=== PATIENT | male | born 1945 | race Caucasian/White ===

== ENCOUNTER 2018-06-19 17:25 | Observation (INO) | payer OTHER ==
--- NOTE | 2018-06-19 17:47 | PDOC ---
Attending Attestation - Resident Resident Name: Bayron Bowling - ED Attending Attestation I have performed the following: I have examined & evaluated the patient, The case was reviewed & discussed with the resident, I agree w/resident's findings & plan, Exceptions are as noted - Medical Decision Making 06/19/18 17:47 I, Dr. Kiara Calles, DO, attest that this document has been prepared under my direction and personally reviewed by me in its entirety. I further attest, that it accurately reflects all work, treatment, procedures and medical decision -making performed by me. 06/19/18 19:06 a/p: 72yo male with a witnessed syncopal episode while dancing at a fam event -hx of cad -hx of recent travel from [place] -no cp/sob -has had intermittent L lower extremity pain -will send labs, surveillance system monitor, ekg, cxr -duplex us lower leg -will need obs for syncopal episode <Kiara Calles - Last Filed: 06/19/18 19:06> - HPI HPI: 06/19/18 19:28 The patient is a 72 year old male with a significant past medical history of CAD s/p CABG, DM, and HDL who presents to the ER with a syncopal episode approximately 30 minutes prior to arrival. Patient states he was dancing at a constitution party and subsequently felt dizzy. Patient denies any headaches, chest pain, palpitations, or shortness of breath prior to his syncopal episode. Patient ate and drank normally today. Patient endorses drinking two sips of Black Label. Patient was grabbed by his brother and lowered to the ground. Patient denies any head trauma. Patient lost consciousness for approximately 3 minutes and returned to baseline afterwards. Patient denies any tongue biting, and loss of bladder or bowel control. Patient also endorses 3 episodes of nonbloody, nonbilious vomit. Patient ate BBQ sausages last night and is unsure if that upset his stomach. Patient is also reporting left calf pain yesterday and occasional pain since coming back from [place] on June 02. Patient was placed on a z-pack after returning from [place] for a cough, which he has completed. Patient has no complaints now. The patient now denies numbness/weakness/tingling of his extremities, chest pain , shortness of breath, headache, and dizziness. Denies fever, chills, nausea, vomit, diarrhea, and constipation. Denies dysuria, frequency, urgency, and hematuria. Allergies: NKA Past surgical history: CABG Social history: Recently quit smoking. No reported drug or alcohol use. PCP: Dr. Curry - Physicial Exam PE: 06/19/18 19:05 ADULT PHYSICAL EXAM Constitutional: Awake, alert, oriented. No acute distress. Head: Normocephalic. Atraumatic Eyes: PERRL. EOMI. Conjunctivae are not pale. ENT: Mucous membranes are moist and intact. Posterior pharynx without exudates or erythema. Uvula midline. Neck: Supple. Full ROM. No lymphadenopathy. Cardiovascular: Regular rate. Regular rhythm. S1, S2 regular. Distal pulses are 2+ and symmetric. Pulmonary/Chest: No evidence of respiratory distress. Clear to auscultation bilaterally No wheezing, rales or rhonchi. Abdominal: Soft and non-distended. There is no tenderness. No rebound, guarding or rigidity. No organomegaly. No palpable masses. Good bowel sounds. Back: No CVA tenderness. Musculoskeletal: No edema. No cyanosis. No clubbing. Full range of motion in all extremities. Nocalf tenderness. Radial/pedal pulses are intact and 2+ bilaterally Skin: Skin is warm and dry. No petechiae. No purpura. <Jimena Jim - Last Filed: 06/19/18 19:28> Heart Score/ECG Review - ECG Intrepretation Comment:: 06/19/18 17:48 sinus at 79, incomplete rbbb, t wave inversions I/avl, abnl ekg - changes from prior in 2014 <Kiara Calles - Last Filed: 06/19/18 19:06>
[2018-06-19 17:59] VITALS: BMI 29.8
[2018-06-19] MEDS ORDERED: SODIUM CHLORIDE 0.9% 500 ML INFUS.BAG IV ONE (18:14)
--- NOTE | 2018-06-19 18:44 | PDOC ---
History of Present Illness - General Chief Complaint: Syncope/Near Syncope Stated Complaint: SYNCOPE Time Seen by Provider: 06/19/18 17:35 History Source: Patient, Spouse ( present for interview.) Exam Limitations: No Limitations - History of Present Illness Initial Comments: 72 y/o male presenting to [facility] ER via ambulance complaining of a syncopal episode approx. 30 min prior to arrival. Pt states he was dancing at a [employer] when he suddenly felt the dizzy and weak. Only drank a few sips of Black Label. He was helped to the floor by his brother. believes the pt was unresponsive for approx. 3 minutes, denies witnessing shaking or seizure like activity. He returned to to baseline immediately after regaining consciousness. He denies tongue biting or urinary/fecal incontinence. He vomited twice, described as food particulates only no blood or bile. Denies history of similar. Denies chest pain, SOB, fevers, chills, diaphoresis, GI, or symptoms. Returned from a two week trip to [place] on . Endorses a cough on his return. Was prescribed a Z-Jerrod by his PCP. Completed the antibiotic therapy 7 days ago. PCP: Mauricio Curry Hx: - Recently stopped smoking Medical Hx: - CAD s/p CABG - DM - HDL Surgical Hx: - CABG 06/2015 at [place] Past History - Past Medical History Allergies/Adverse Reactions: Allergies Allergy/AdvReac Type Severity Reaction Status Date / Time No Known Allergies Allergy Verified 06/19/18 17:47 Home Medications: Ambulatory Orders Aspirin [Ecotrin] 81 mg PO DAILY 12/27/14 Insulin Aspart [Novolog] 0 unit SQ AC 12/27/14 Insulin Glargine,Hum.rec.anlog [Lantus (nf)] 0 units SQ HS 12/27/14 Olmesartan/Hydrochlorothiazide [Benicar Hct 40-12.5 mg Tablet] 1 each PO DAILY 12/27/14 Simvastatin [Zocor -] 40 mg PO HS 12/27/14 Sitagliptin Phos/Metformin HCl [Janumet 50-1,000 mg Tablet] 1 each PO DAILY COPD: No CHF: No Diabetes: Yes HTN: Yes Hypercholesterolemia: Yes - Suicide/Smoking/Psychosocial Hx Smoking History: Former smoker Have you smoked in the past 12 months: Yes Number of Cigarettes Smoked Daily: 10 Information on smoking cessation initiated: No Hx Alcohol Use: Yes (social) Drug/Substance Use Hx: No Substance Use Type: Alcohol Review of Systems - Review of Systems Able to Perform ROS?: Yes Comments:: In addition to that documented in the HPI above, the additional ROS was obtained : Constitutional: Denies fevers or chills Eyes: Denies vision changes ENMT: Denies sore throat CV: Denies chest pain Resp: Denies SOB GI: Endorses vomiting but denies diarrhea : Denies painful urination MSK: Denies recent trauma Skin: Denies new rashes Neuro: Denies new numbness or tingling or weakness Endocrine: Denies polyuria Heme: Denies bleeding or bruising *Physical Exam - Vital Signs Last Vital Signs Temp Pulse Resp BP Pulse Ox 98.0 F 83 18 121/72 100 06/19/18 17:41 06/19/18 17:41 06/19/18 17:41 06/19/18 17:41 06/19/18 18:44 - Physical Exam Comments: Constitutional: Well-developed, well-nourished male in no acute distress or obvious discomfort. Found semi-fowlers in hospital bed. Alert and oriented x4. Answered all questions appropriately and completely. Speech was non-labored, non -pressured. Head: Normocephalic. No obvious external signs of trauma. Eyes: PERRL. EOMI. Sclerae white. Conjunctiva moist and not injected. EARS: Hearing grossly intact. NOSE: No nasal discharge. THROAT: Oral cavity and pharynx normal. No inflammation, swelling, exudate, or lesions. Teeth and gingiva in good general condition. Neck: Supple, trachea is midline. Cardiovascular: Regular rate and regular rhythm. No murmur, rubs, clicks, or gallops. Peripheral pulses: Radial pulses full. Respiratory: Breathing unlabored. Equal chest rise and fall. Clear to auscultation bilaterally. No stridor, no wheezing, no rhonchi. Gastrointestinal: abdomen is soft, non-tender, non-distended. Neuro: Alert and oriented. Moving all four extremities spontaneously. No focal deficits, Cranial nerves intact, intact sensation to all four extremities. Upper and lower extremities: proximal and distal strength 5/5. Application Specialist strength 5/ 5 - equal and symmetric. Plantar flexion and dorsiflexion 5/5. Skin: Warm, dry, and intact. No bruising, rashes, or other lesions. No palpable nodules. Psych: Affect: appropriate. Mood: normal. ED Treatment Course - LABORATORY CBC & Chemistry Diagram: 06/19/18 18:22 10 18:35 - ADDITIONAL ORDERS Additional order review: Laboratory Results 06/19/18 10 18:35 18:22 Sodium 138 Potassium 4.3 Chloride 103 Carbon Dioxide 28 Anion Gap 6 L BUN 25 H Creatinine 1.2 Creat Clearance w eGFR 59.68 Random Glucose 153 H Calcium 9.2 Phosphorus 3.4 Magnesium 1.8 Total Bilirubin 0.4 AST 14 L ALT 18 Alkaline Phosphatase 83 Troponin I 0.04 Total Protein 6.8 Albumin 3.1 L TSH 1.65 06/19/18 18:22 RBC 4.42 MCV 89.2 MCHC 33.5 RDW 13.7 MPV 11.1 Neutrophils % 82.9 H Lymphocytes % 7.6 L Monocytes % 7.7 Eosinophils % 1.4 Basophils % 0.4 - RADIOLOGY Radiology Studies Ordered: Category Date Time Status CHEST PA & LAT [RAD] Stat Radiology 06/19/18 18:14 Ordered DUPLEX VASCUL US-1 LEG [US] Stat Ultrasound 06/19/18 19:08 Ordered - Medications Given in the ED: ED Medications Discontinued Medications Generic Name Dose Route Start Last Admin Trade Name Freq PRN Reason Stop Dose Admin Sodium Chloride 1,000 ml 06/19/18 18:14 06/19/18 18:39 Normal Saline - IV 06/19/18 18:15 1,000 ml ONCE ONE Administration Medical Decision Making - Medical Decision Making *Reviewed vital signs, nursing notes, and prior visit documentation (if available). 72 y/o male presenting s/p witnessed syncope episode. No h/o similar. Without active chief complaint at time of interview. Afebrile. Vitals unremarkable. Benign physical exam, neurologically intact. D/D: ACS, arrhythmia, electrolyte derangement, thyroid derangement, pneumonia, dehydration, vasovagal, UTI (very low suspicion), seizure, PE. Will obtain: CBC, CMP, Mag, Phos, TSH, Troponin, EKG, CXR, UA, urine culture. Ordered NS IVFB. Admission likely. Wells' Criteria for Pulmonary Embolism RESULT SUMMARY: 0.0 points Low risk group: 1.3% chance of PE in an ED population. Another study assigned scores ? 4 as PE Unlikely and had a 3% incidence of PE. INPUTS: Clinical signs and symptoms of DVT > 0 = No PE is #1 diagnosis OR equally likely > 0 = No Heart rate > 100 > 0 = No Immobilization at least 3 days OR surgery in the previous 4 weeks > 0 = No Previous, objectively diagnosed PE or DVT > 0 = No Hemoptysis > 0 = No Malignancy w/ treatment within 6 months or palliative > 0 = No 06/19/18 19:26 Pt signed out to resident Dr. Vargas after she was verbally appraised of the pt's HPI and current condition. Will follow up on pending labs , CXR, and vascular ultrasound. Plan is likely to admit. *DC/Admit/Observation/Transfer Diagnosis at time of Disposition: Syncope - Discharge Dispostion Condition at time of disposition: Stable - Referrals Referrals: Mauricio Curry MD [Primary Care Provider] - - Patient Instructions - Post Discharge Activity
[2018-06-19 18:45] LABS: BASO % 0.4 % (0-2.0); EOS % 1.4 % (0-4.5); HEMATOCRIT 39.5 % (35.4-49); HEMOGLOBIN 13.2 GM/dL (11.7-16.9); LYMPH % 7.6 % (8-40); MCH 29.9 pg (25.7-33.7); MCHC 33.5 g/dl (32.0-35.9); MEAN CELL VOLUME 89.2 fl (80-96); MEAN PLT VOLUME 11.1 fl (7.5-11.1); MONO % 7.7 % (3.8-10.2); NEUT % 82.9 % (42.8-82.8); PLATELET COUNT 217 K/MM3 (134-434); RBC 4.42 M/mm3 (4.00-5.60); RDW 13.7 % (11.9-15.9); WHITE BLOOD COUNT 13.2 K/mm3 (4.0-10.0)
[2018-06-19 19:22] LABS: ALBUMIN 3.1 g/dl (3.4-5.0); ALK PHOS 83 U/L (45-117); ANION GAP 6 MMOL/L (8-16); BILIRUBIN,TOTAL 0.4 mg/dL (0.2-1); BLOOD UREA NITROGEN 25 mg/dL (7-18); CALCIUM 9.2 mg/dL (8.5-10.1); CHLORIDE 103 mmol/L (98-107); CO2 28 mmol/L (21-32); CREATININE 1.2 mg/dL (0.55-1.3); GLUCOSE,RANDOM 153 mg/dL (74-106); MAGNESIUM 1.8 mg/dL (1.8-2.4); PHOSPHOROUS 3.4 mg/dL (2.5-4.9); POTASSIUM 4.3 mmol/L (3.5-5.1); SGOT/AST 14 U/L (15-37); SGPT/ALT 18 U/L (13-61); SODIUM 138 mmol/L (136-145); TOT PROT 6.8 g/dl (6.4-8.2)
--- NOTE | 2018-06-19 19:27 | PDOC ---
*Physical Exam - Vital Signs Last Vital Signs Temp Pulse Resp BP Pulse Ox 98.0 F 83 18 121/72 100 06/19/18 17:41 06/19/18 17:41 06/19/18 17:41 06/19/18 17:41 06/19/18 18:44 06/19/18 19:10 Patient's care was endorsed to me by Dr. Bowling at the end of his shift. This is a 72 YOM with h/o CABG 3 years ago, who was BIBEMS s/p syncopal episode while on the dance floor, unconscious ~3 minutes without seizure-like activity, then had episode of NBNB vomiting. Came back from [place] one month ago and finished a Z-pack for a cough he had at that time. He has LLE calf pain 3 nights ago (resolved) and patient Pending labs, Duplex, CXR, admit. Heart Score/ECG Review #1 EKG from 17:46 on 06/19/18 reviewed at 19:20 today. NSR, rate 79, q wave in III, incomplete RBBB, TWI in I, aVL, V56. TWI are all old compared with 2015 studies. ED Treatment Course - LABORATORY CBC & Chemistry Diagram: 06/19/18 18:22 06/19/18 18:35 - ADDITIONAL ORDERS Additional order review: Laboratory Results 06/19/18 06/19/18 18:35 18:22 Sodium 138 Potassium 4.3 Chloride 103 Carbon Dioxide 28 Anion Gap 6 L BUN 25 H Creatinine 1.2 Creat Clearance w eGFR 59.68 Random Glucose 153 H Calcium 9.2 Phosphorus 3.4 Magnesium 1.8 Total Bilirubin 0.4 AST 14 L ALT 18 Alkaline Phosphatase 83 Troponin I 0.04 Total Protein 6.8 Albumin 3.1 L TSH 1.65 06/19/18 18:22 RBC 4.42 MCV 89.2 MCHC 33.5 RDW 13.7 MPV 11.1 Neutrophils % 82.9 H Lymphocytes % 7.6 L Monocytes % 7.7 Eosinophils % 1.4 Basophils % 0.4 - Medications Given in the ED: ED Medications Discontinued Medications Generic Name Dose Route Start Last Admin Trade Name Freq PRN Reason Stop Dose Admin Sodium Chloride 1,000 ml 06/19/18 18:14 06/19/18 18:39 Normal Saline - IV 06/19/18 18:15 1,000 ml ONCE ONE Administration Medical Decision Making - Medical Decision Making 06/19/18 20:17 I spoke with the patient and his family. The patient is A/Ox4, very pleasant, reluctant to stay, wants all the ED w/u information before deciding. Still pending CXR and repeat labs. Laboratory Tests 06/19/18 06/19/18 06/19/18 18:22 18:22 18:35 WBC 13.2 H RBC 4.42 Hgb 13.2 Hct 39.5 MCV 89.2 MCH 29.9 MCHC 33.5 RDW 13.7 Plt Count 217 MPV 11.1 Absolute Neuts (auto) 10.9 H Neutrophils % 82.9 H Lymphocytes % 7.6 L Monocytes % 7.7 Eosinophils % 1.4 Basophils % 0.4 Nucleated RBC % 0 D-Dimer Sodium 138 Potassium 4.3 Chloride 103 Carbon Dioxide 28 Anion Gap 6 L BUN 25 H Creatinine 1.2 Creat Clearance w eGFR 59.68 Random Glucose 153 H Calcium 9.2 Phosphorus 3.4 Magnesium 1.8 Total Bilirubin 0.4 AST 14 L ALT 18 Alkaline Phosphatase 83 Troponin I 0.04 Total Protein 6.8 Albumin 3.1 L TSH 1.65 06/19/18 19:16 WBC RBC Hgb Hct MCV MCH MCHC RDW Plt Count MPV Absolute Neuts (auto) Neutrophils % Lymphocytes % Monocytes % Eosinophils % Basophils % Nucleated RBC % D-Dimer 393 Sodium Potassium Chloride Carbon Dioxide Anion Gap BUN Creatinine Creat Clearance w eGFR Random Glucose Calcium Phosphorus Magnesium Total Bilirubin AST ALT Alkaline Phosphatase Troponin I Total Protein Albumin TSH 06/19/18 21:25 Placed order for repeat troponin. CXR changed to portable and the patient is next in line. Patient and family increasingly wanting to leave. I stress to him the importance of further workup for this apparent syncopal episode. I explain that syncope in the setting of cardiac history like his is very concerning and needs observation and further w/u. He states he is sure this is a stomach issue and does not believe it is anything dangerous. I stress to him that without further workup, we cannot say for sure that it is benign. I explain that fainting in a man his age with his cardiac history is very concerning and can be dangerous. He wants the results of the rest of the workup and then to go home. Laboratory Tests 06/19/18 06/19/18 06/19/18 18:22 18:22 18:35 WBC 13.2 H RBC 4.42 Hgb 13.2 Hct 39.5 MCV 89.2 MCH 29.9 MCHC 33.5 RDW 13.7 Plt Count 217 MPV 11.1 Absolute Neuts (auto) 10.9 H Neutrophils % 82.9 H Lymphocytes % 7.6 L Monocytes % 7.7 Eosinophils % 1.4 Basophils % 0.4 Nucleated RBC % 0 D-Dimer Sodium 138 Potassium 4.3 Chloride 103 Carbon Dioxide 28 Anion Gap 6 L BUN 25 H Creatinine 1.2 Creat Clearance w eGFR 59.68 Random Glucose 153 H Calcium 9.2 Phosphorus 3.4 Magnesium 1.8 Total Bilirubin 0.4 AST 14 L ALT 18 Alkaline Phosphatase 83 Troponin I 0.04 Total Protein 6.8 Albumin 3.1 L TSH 1.65 Urine Color Urine Appearance Urine pH Ur Specific Leroy Urine Protein Urine Glucose (UA) Urine Ketones Urine Blood Urine Nitrite Urine Bilirubin Urine Urobilinogen Ur Leukocyte Esterase Urine WBC (Auto) Urine RBC (Auto) Urine Mucus 06/19/18 06/19/18 06/19/18 18:39 19:16 21:41 WBC RBC Hgb Hct MCV MCH MCHC RDW Plt Count MPV Absolute Neuts (auto) Neutrophils % Lymphocytes % Monocytes % Eosinophils % Basophils % Nucleated RBC % D-Dimer 393 Sodium Potassium Chloride Carbon Dioxide Anion Gap BUN Creatinine Creat Clearance w eGFR Random Glucose Calcium Phosphorus Magnesium Total Bilirubin AST ALT Alkaline Phosphatase Troponin I 0.07 H Total Protein Albumin TSH Urine Color Yellow Urine Appearance Clear Urine pH 5.0 Ur Specific Leroy 1.017 Urine Protein 2+ H Urine Glucose (UA) Negative Urine Ketones Negative Urine Blood Negative Urine Nitrite Negative Urine Bilirubin Negative Urine Urobilinogen Negative Ur Leukocyte Esterase Negative Urine WBC (Auto) 1 Urine RBC (Auto) 1 Urine Mucus Rare Vital Signs Temperature 98.4 F 06/19/18 22:51 Pulse Rate 64 06/19/18 22:51 Respiratory Rate 18 06/19/18 22:51 Blood Pressure 118/52 L 06/19/18 22:51 O2 Sat by Pulse Oximetry (%) 94 L 06/19/18 22:51 06/20/18 01:14 I had another conversation with the patient and his family. He is able to understand how serious this syncopal episode may be and that it may be dangerous to go home. He is amenable to staying. The Pt is unsafe for discharge at this time. They require further hospital observation, workup, and treatment. Microblog sent to [facility] for admission. Blank Decision to Admit order is placed per ED protocol. 06/20/18 01:42 I spoke with Nava Palmer; patient admitted to Tele Obs. Decision to Admit order corrected with Dr. Moncada's name. *DC/Admit/Observation/Transfer Diagnosis at time of Disposition: Troponin level elevated Syncope Qualifiers: Syncope type: unspecified Qualified Code(s): R55 - Syncope and collapse Vomiting Qualifiers: Vomiting type: unspecified Vomiting Intractability: non-intractable Nausea presence: unspecified Qualified Code(s): R11.10 - Vomiting, unspecified - Discharge Dispostion Condition at time of disposition: Guarded Decision to Admit order: Yes - Referrals Referrals: Mauricio Curry MD [Primary Care Provider] - - Patient Instructions - Post Discharge Activity
[2018-06-19 21:56] LABS: URINE APPEARANCE CLEAR; URINE BILIRUBIN NEGATIVE (<2.0 mg/dL); URINE COLOR YELLOW; URINE GLUCOSE (UA) NEGATIVE (NEGATIVE); URINE KETONE NEGATIVE (NEGATIVE); URINE LEUK ESTERASE NEGATIVE (NEGATIVE); URINE NITRITE NEGATIVE (NEGATIVE); URINE PROTEIN 2+ (NEGATIVE); URINE UROBILINOGEN NEGATIVE mg/dL (0.2-1.0)
[2018-06-19 22:26] LABS: URINE MUCUS RARE
[2018-06-20 02:00] VITALS: PULSE 72
[2018-06-20] MEDS ORDERED: INSULIN (LEVEMIR) 100 UNITS/ML UNITS SQ ONE ×2 (02:38→02:47)
--- NOTE | 2018-06-20 02:39 | HP ---
CHIEF COMPLAINT: syncope PCP: García Curry, Cardiology: [facility]ta[facility] HISTORY OF PRESENT ILLNESS: This is a 72 year old male with a significant past medical history of CAD s/p CABG, HTN, DM who presented to the ED after a syncopal episode. Pt states that he was dancing at a [employer] and he suddenly became dizzy and had to hold on to something. His brother lowered him to the ground and he had a LOC of 2-3 minutes according to his (as per ED note). Pt reports that when he awoke he was nauseas and was vomiting when EMS arrived. He now reports feeling well. He denies chest pain or shortness of breath. He reports not sleeping well since returning home from [place] about 2 weeks ago. He also did not eat well today. He had 2 drinks, one at home prior to going to the [employer] and one at the [employer]. He states that he does not normally drink. ER course was notable for: (1) second trop 0.07 (2) ECG unchanged Recent Travel: pt denies PAST MEDICAL HISTORY: CAD, HTN, HLD, DM PAST SURGICAL HISTORY: 2v CABG Social History: Smoking: quit smoking 2 weeks ago. Prior 1/-1 PPD x 55 years Alcohol: occ Drugs: pt denies Family History: unk Allergies No Known Allergies Allergy (Verified 06/19/18 17:47) HOME MEDICATIONS: 3 Medication Instructions Recorded Aspirin [Ecotrin] 81 mg PO DAILY 12/27/14 Insulin Aspart [Novolog] 0 unit SQ AC 12/27/14 Insulin Glargine,Hum.rec.anlog 0 units SQ HS 12/27/14 [Lantus (nf)] Olmesartan/Hydrochlorothiazide 1 each PO DAILY 12/27/14 [Benicar Hct 40-12.5 mg Tablet] Simvastatin [Zocor -] 40 mg PO HS 12/27/14 Sitagliptin Phos/Metformin HCl 1 each PO DAILY 12/27/14 [Janumet 50-1,000 mg Tablet] REVIEW OF SYSTEMS CONSTITUTIONAL: Absent: fever, chills, diaphoresis, generalized weakness, malaise, loss of appetite, weight change HEENT: Absent: rhinorrhea, nasal congestion, throat pain, throat swelling, difficulty swallowing, mouth swelling, ear pain, eye pain, visual changes CARDIOVASCULAR: Present: syncope Absent: chest pain, palpitations, irregular heart rate, lightheadedness, peripheral edema RESPIRATORY: Absent: cough, shortness of breath, dyspnea with exertion, orthopnea, wheezing, stridor, hemoptysis GASTROINTESTINAL: Present: nausea, vomiting Absent: abdominal pain, abdominal distension, diarrhea, constipation, melena, hematochezia GENITOURINARY: Absent: dysuria, frequency, urgency, hesitancy, hematuria, flank pain, genital pain MUSCULOSKELETAL: Absent: myalgia, arthralgia, joint swelling, back pain, neck pain SKIN: Absent: rash, itching, pallor HEMATOLOGIC/IMMUNOLOGIC: Absent: easy bleeding, easy bruising, lymphadenopathy, frequent infections ENDOCRINE: Absent: unexplained weight gain, unexplained weight loss, heat intolerance, cold intolerance NEUROLOGIC: Absent: headache, focal weakness or paresthesias, dizziness, unsteady gait, seizure, mental status changes, bladder or bowel incontinence PSYCHIATRIC: Absent: anxiety, depression, suicidal or homicidal ideation, hallucinations. PHYSICAL EXAMINATION Vital Signs - 24 hr 3 06/19/18 06/19/18 06/19/18 17:41 18:44 22:51 Temperature 98.0 F 98.4 F Pulse Rate 83 Pulse Rate [ 64 Apical] Respiratory 18 18 Rate Blood Pressure 121/72 Blood Pressure 118/52 L [Right Arm] O2 Sat by Pulse 100 100 94 L Oximetry (%) 3 06/19/18 23:10 Temperature 98.2 F Pulse Rate Pulse Rate [ 72 Apical] Respiratory 18 Rate Blood Pressure Blood Pressure 121/72 [Right Arm] O2 Sat by Pulse 98 Oximetry (%) GENERAL: Awake, alert, and fully oriented, in no acute distress. HEAD: Normal with no signs of trauma. EYES: Pupils equal, round and reactive to light, extraocular movements intact, sclera anicteric, conjunctiva clear. No lid lag. EARS, NOSE, THROAT: Ears normal, nares patent, oropharynx clear without exudates. Moist mucous membranes. NECK: Normal range of motion, supple without lymphadenopathy, JVD, or masses. LUNGS: Breath sounds equal, clear to auscultation bilaterally. No wheezes, and no crackles. No accessory muscle use. HEART: Regular rate and rhythm, normal S1 and S2 without murmur, rub or gallop. ABDOMEN: Soft, nontender, not distended, normoactive bowel sounds, no guarding, no rebound, no masses. No hepatomegaly or splenomegaly. MUSCULOSKELETAL: Normal range of motion at all joints. No bony deformities or tenderness. No CVA tenderness. UPPER EXTREMITIES: 2+ pulses, warm, well-perfused. No cyanosis. No clubbing. No peripheral edema. LOWER EXTREMITIES: 2+ pulses, warm, well-perfused. No calf tenderness. No peripheral edema. NEUROLOGICAL: Cranial nerves II-XII intact. Normal speech. PSYCHIATRIC: Cooperative. Good eye contact. Appropriate mood and affect. SKIN: Warm, dry, normal turgor, no rashes or lesions noted, normal capillary refill. Laboratory Results - last 24 hr 3 06/19/18 06/19/18 06/19/18 06/19/18 06/19/18 06/20/18 18:22 18:22 18:35 19:16 21:41 00:30 WBC 13.2 H RBC 4.42 Hgb 13.2 Hct 39.5 MCV 89.2 MCH 29.9 MCHC 33.5 RDW 13.7 Plt Count 217 MPV 11.1 Absolute Neuts (auto) 10.9 H Neutrophils % 82.9 H Lymphocytes % 7.6 L Monocytes % 7.7 Eosinophils % 1.4 Basophils % 0.4 Nucleated RBC % 0 D-Dimer 393 Sodium 138 Potassium 4.3 Chloride 103 Carbon Dioxide 28 Anion Gap 6 L BUN 25 H Creatinine 1.2 Creat Clearance w eGFR 59.68 POC Glucometer [phone] Random Glucose 153 H Calcium 9.2 Phosphorus 3.4 Magnesium 1.8 Total Bilirubin 0.4 AST 14 L ALT 18 Alkaline Phosphatase 83 Troponin I 0.04 0.07 H Total Protein 6.8 Albumin 3.1 L TSH 1.65 Urine Color Urine Appearance Urine pH Ur Specific [place] Urine Protein Urine Glucose (UA) Urine Ketones Urine Blood Urine Nitrite Urine Bilirubin Urine Urobilinogen Ur Leukocyte Esterase Urine WBC (Auto) Urine RBC (Auto) Urine Mucus 3 Urine Color Yellow 06/19/18 18:39 Urine Appearance Clear 06/19/18 18:39 Urine pH 5.0 (5.0-8.0) 06/19/18 18:39 Ur Specific [place] 1.017 (1.010-1.035) 06/19/18 18:39 Urine Protein 2+ (NEGATIVE) H 06/19/18 18:39 Urine Glucose (UA) Negative (NEGATIVE) 06/19/18 18:39 Urine Ketones Negative (NEGATIVE) 06/19/18 18:39 Urine Blood Negative (NEGATIVE) 06/19/18 18:39 Urine Nitrite Negative (NEGATIVE) 06/19/18 18:39 Urine Bilirubin Negative (<2.0 mg/dL) 06/19/18 18:39 Ur Leukocyte Esterase Negative (NEGATIVE) 06/19/18 18:39 Urine WBC (Auto) 1 06/19/18 18:39 Urine RBC (Auto) 1 06/19/18 18:39 Urine Mucus Rare 06/19/18 18:39 ECG Normal sinus rhythm vent rate 79, QTC 454 possible left atrial enlargement incomplete RBBB TWI lead 1, avL, v6, flattened lead II, V5, unchanged from prior T waves now upright in leads V2-V4 (previously flattened) Radiology Reports US doppler L leg Impression: No left lower extremity DVT. THIS DOCUMENT HAS BEEN ELECTRONICALLY SIGNED Emil Mena MD 06/19/2018 21:49 EST ASSESSMENT/PLAN: 72yM with PMH CAD s/p CABG, HTN, HLD, DM presented to the ED s/p syncope while dancing at a [employer]. Syncope - trop bump from 0.04 to 0.07, trend x 1 more - monitor on tele - ECG in am - cardiology consult HTN/HLD/CAD - cont home meds: ASA, lipitor, losartan, metorpolol DM - BGM AC/HS with novolog sliding scale - pt states he takes his toujeo at 3pm and 8pm, but did not take his 8pm dose , will change to formulary levemir, now 20u and 20u @3pm today - cont home po hypoglycemics as anticipated LOS short, Stop if any contrast studies indicated DVT PPX - heparin deferred, LOS anticipated less than 48 hours FEN - tolerating po - BMP in am - low sodium/diabetic diet as tolerated Dispo: pt currently requires further observation for management of his emergent condition. Visit type - Emergency Visit Emergency Visit: Yes ED Registration Date: 06/19/18 Care time: The patient presented to the Emergency Department on the above date and was hospitalized for further evaluation of their emergent condition. - New Patient This patient is new to me today: Yes Date on this admission: 06/20/18 - Critical Care Critical Care patient: No
[2018-06-20] MEDS ORDERED: metFORMIN HCL 500 MG TABLET (FP) ONE (06:15)
[2018-06-20] MEDS ORDERED: sitaGLIPtin PHOSPHATE 50 MG TABLET ONE (06:15)
[2018-06-20] MEDS: INSULIN SLIDING SCALE (NOVOLOG) 1 VIAL SQ SCH ×2 (06:28→12:33)
[2018-06-20 06:58] LABS: BASO % 0.4 % (0-2.0); EOS % 2.1 % (0-4.5); HEMATOCRIT 40.9 % (35.4-49); HEMOGLOBIN 13.2 GM/dL (11.7-16.9); LYMPH % 18.6 % (8-40); MCH 29.3 pg (25.7-33.7); MCHC 32.2 g/dl (32.0-35.9); MEAN CELL VOLUME 90.9 fl (80-96); MEAN PLT VOLUME 11.6 fl (7.5-11.1); MONO % 9.7 % (3.8-10.2); NEUT % 69.2 % (42.8-82.8); PLATELET COUNT 213 K/MM3 (134-434); RDW 13.7 % (11.9-15.9); WHITE BLOOD COUNT 10.6 K/mm3 (4.0-10.0)
[2018-06-20] MEDS ORDERED: sitaGLIPtin PHOSPHATE 100 MG TABLET (FP) PO SCH (07:00)
[2018-06-20] MEDS ORDERED: metFORMIN HCL 500 MG TABLET (FP) PO SCH (07:00)
[2018-06-20 07:36] LABS: ANION GAP 6 MMOL/L (8-16); BLOOD UREA NITROGEN 23 mg/dL (7-18); CALCIUM 8.8 mg/dL (8.5-10.1); CHLORIDE 103 mmol/L (98-107); CO2 29 mmol/L (21-32); CREATININE 1.3 mg/dL (0.55-1.3); GLUCOSE,RANDOM 140 mg/dL (74-106); PHOSPHOROUS 3.5 mg/dL (2.5-4.9); SODIUM 138 mmol/L (136-145)
[2018-06-20 08:40] VITALS: BP 134/72; TEMP 98.1
[2018-06-20] MEDS ORDERED: ASPIRIN COATED 81 MG TABLET.EC PO SCH (10:00)
--- NOTE | 2018-06-20 10:32 | EKG ---
Test Reason : Blood Pressure : / mmHG Vent. Rate : 071 BPM Atrial Rate : 071 BPM P-R Int : 134 ms QRS Dur : 106 ms QT Int : 416 ms P-R-T Axes : 051 033 213 degrees QTc Int : 452 ms NORMAL SINUS RHYTHM POSSIBLE LEFT ATRIAL ENLARGEMENT ABNORMAL ECG WHEN COMPARED WITH ECG OF 19-JUN-2018 17:46, Confirmed by VAUGHN URBINA MD ([id number]) on 06/20/2018 10:31:45 AM Referred By: Confirmed By:VAUGHN URBINA MD
--- NOTE | 2018-06-20 10:40 | EKG ---
Test Reason : Blood Pressure : / mmHG Vent. Rate : 079 BPM Atrial Rate : 079 BPM P-R Int : 138 ms QRS Dur : 104 ms QT Int : 396 ms P-R-T Axes : 035 -19 141 degrees QTc Int : 454 ms NORMAL SINUS RHYTHM POSSIBLE LEFT ATRIAL ENLARGEMENT INCOMPLETE RIGHT BUNDLE BRANCH BLOCK ABNORMAL ECG WHEN COMPARED WITH ECG OF 27-DEC-2014 03:01, INCOMPLETE RIGHT BUNDLE BRANCH BLOCK IS NOW PRESENT Confirmed by CIARA DEE, VAUGHN ([id number]) on 06/20/2018 10:39:34 AM Referred By: Confirmed By:VAUGHN URBINA MD
--- NOTE | 2018-06-20 11:53 | PN ---
Progress Note, Physician Chief Complaint: patient seen and examined feeling better no chest pain no dizziness wants to go home - Current Medication List Current Medications: Active Medications Aspirin (Ecotrin -) 81 mg PO DAILY [facility] Last Admin: 06/20/18 11:18 Dose: 81 mg Atorvastatin Calcium (Lipitor -) 40 mg PO HS [facility] Insulin Aspart (Novolog Vial Sliding Scale -) 1 vial SQ [facility]; Protocol Last Admin: 06/20/18 06:28 Dose: Not Given Insulin Detemir (Levemir Vial) 20 units SQ BID@0700,2200 [facility] Losartan Potassium (Cozaar -) 25 mg PO HS [facility] Metformin HCl (Glucophage -) 500 mg PO BIDAC [facility] Last Admin: 06/20/18 06:27 Dose: Not Given Metoprolol Succinate (Toprol Xl -) 50 mg PO DAILY [facility] Last Admin: 06/20/18 11:19 Dose: 50 mg Sitagliptin Phosphate (Januvia -) 100 mg PO DAILY@0700 [facility] Last Admin: 06/20/18 06:27 Dose: 100 mg - Objective Vital Signs: Vital Signs Temperature 98.1 F 06/20/18 08:38 Pulse Rate 72 06/20/18 08:38 Respiratory Rate 16 06/20/18 08:38 Blood Pressure 134/72 06/20/18 08:38 O2 Sat by Pulse Oximetry (%) 99 06/20/18 08:47 Constitutional: Yes: Calm Cardiovascular: Yes: Regular Rate and Rhythm, S1, S2 Respiratory: Yes: CTA Bilaterally Gastrointestinal: Yes: Normal Bowel Sounds, Soft Edema: No Neurological: Yes: Alert, Oriented Labs: CBC, BMP 06/20/18 06:00 06/20/18 06:00 Problem List - Problems (1) Syncope Assessment/Plan: telemtry ekg seen troponin 0.04 - 0.07- 0.06 ekg noted for upright waves echo carotid doppler on aspirn h/o cabg done at [place] 3 yrs ago iv heparin till seen by cardiology statin BB Code(s): R55 - SYNCOPE AND COLLAPSE Qualifiers: Syncope type: unspecified Qualified Code(s): R55 - Syncope and collapse (2) Troponin level elevated Assessment/Plan: heparin Code(s): R74.8 - ABNORMAL LEVELS OF OTHER SERUM ENZYMES (3) Diabetes Assessment/Plan: bgm sliding scale levemir januvia stop metformin for now Code(s): E11.9 - TYPE 2 DIABETES MELLITUS WITHOUT COMPLICATIONS Qualifiers: Diabetes mellitus type: type 2
[2018-06-20] MEDS ORDERED: HEPARIN NA (PORCINE) 5,000 UNITS/ML 1ML VIAL IVPUSH PRN ×2 (11:58)
[2018-06-20] MEDS ORDERED: HEPARIN INFUSION - 25,000 UNITS/500 ML INFUS.BAG IV SCH (12:00)
[2018-06-20] MEDS ORDERED: HEPARIN INFUSION - 25,000 UNITS/500 ML INFUS.BAG IVPB ONE (13:18)
[2018-06-20] MEDS ORDERED: ATORVASTATIN CA 40 MG TABLET (FP) PO SCH (22:00)
[2018-06-20] MEDS ORDERED: INSULIN (LEVEMIR) 100 UNITS/ML UNITS SQ SCH (22:00)
[2018-06-20] MEDS ORDERED: LOSARTAN POTASSIUM 25 MG TABLET PO SCH (22:00)
== END 2018-06-20 14:15 | disposition left against medical advice (07) ==
LOC: JER 17:25 → JERBED 06-20 01:12
PROVIDERS: ADMIT Internal Medicine; ATTEND Family Medicine
PROC: 3E033GC Introduction of Other Therapeutic Substance into Peripheral Vein, Percutaneous Approach (ICD-10-PCS; principal; 2018-06-20)
PROC: 3E0337Z Introduction of Electrolytic and Water Balance Substance into Peripheral Vein, Percutaneous Approach (ICD-10-PCS; 2018-06-20)
PROC: 3E013GC Introduction of Other Therapeutic Substance into Subcutaneous Tissue, Percutaneous Approach (ICD-10-PCS; 2018-06-20)
DX: R55 Syncope and collapse (principal); R77.8 Other specified abnormalities of plasma proteins; I10 Essential (primary) hypertension; E78.5 Hyperlipidemia, unspecified; E11.9 Type 2 diabetes mellitus without complications; I25.10 Atherosclerotic heart disease of native coronary artery without angina pectoris; Z95.1 Presence of aortocoronary bypass graft; Z87.891 Personal history of nicotine dependence; Z79.4 Long term (current) use of insulin; Z79.84 Long term (current) use of oral hypoglycemic drugs
CPT/HCPCS: 36415; 71045-TC-FY; 80048; 80053; 81003; 81015; 82550; 82962; 83735; 84100; 84443; 84484; 85025; 85379; 87086; 93005; 93010; 93971-TC; 96372; 96374; 99285-25; G0378; J1644